=== PATIENT | female | born 1995 | race Caucasian/White ===

== ENCOUNTER → 2019-12-03 11:08 | Outpatient (BNVA) | payer OTHER, SELFPAY | PROVIDERS: Family Provider Pediatrics Adolescent Medicine; Visit Provider Obstetrics & Gynecology | DX: O09.33 Supervision of pregnancy with insufficient antenatal care, third trimester (principal) | CPT/HCPCS: 80053; 80307; 84315; 85027; 86592; 86762; 86803; 86850; 86900; 87340; 87806 ==

== ENCOUNTER → 2019-12-04 14:04 | Outpatient (BNVA) | payer OTHER, SELFPAY | PROVIDERS: Family Provider Pediatrics Adolescent Medicine; Visit Provider Obstetrics & Gynecology | DX: Z36.89 Encounter for other specified antenatal screening (principal) | CPT/HCPCS: 76805 ==

== ENCOUNTER → 2019-12-11 11:03 | Outpatient (BNVA) | payer OTHER, SELFPAY | PROVIDERS: Family Provider Pediatrics Adolescent Medicine; Visit Provider Obstetrics & Gynecology | DX: O09.33 Supervision of pregnancy with insufficient antenatal care, third trimester (principal); Z3A.00 Weeks of gestation of pregnancy not specified | CPT/HCPCS: 82950; 84315; 87491; 87591; 88175 ==

== ENCOUNTER → 2020-01-08 13:21 | Outpatient (BNVA) | payer OTHER, SELFPAY | PROVIDERS: Family Provider Pediatrics Adolescent Medicine; Visit Provider Obstetrics & Gynecology | DX: O09.33 Supervision of pregnancy with insufficient antenatal care, third trimester (principal) | CPT/HCPCS: 84315; 87081 ==

== ENCOUNTER 2020-02-01 20:38 | Inpatient (IN) | payer OTHER, SELFPAY ==
[2020-02-01] VITALS (18 sets, daily range): BP systolic 0–118; BP diastolic 0–75; PULSE 94–110; TEMP 36.8; BMI 25.9
[2020-02-01] MEDS: lactated ringers 1,000 ML 125 ML IV (21:00)
[2020-02-01 21:14] LABS: Basophils % 0.3 %; Eosinophils % 0.4 %; Hematocrit 35.5 % (37.0-47.0); Hemoglobin 10.9 g/dL (11.5-15.3); Lymphocytes # 1.9 10^3/uL (0.8-4.8); Lymphocytes % 17.7 %; Mean Corpuscular HGB Conc 30.7 g/dL (30.0-36.0); Mean Corpuscular Volume 87.9 fL (81-99); Mean Platelet Volume 10.7 fL (7.4-10.4); Monocytes # 0.8 10^3/uL (0.2-0.9); Monocytes % 7.8 %; Neutrophils # 7.84 10^3/uL (1.8-7.7); Neutrophils % 73.1 %; Nucleated Red Blood Cells % 0 %; Platelet Count 270 10^3/cmm (130-400); Red Blood Count 4.04 10^6/uL (4.1-5.3); Red Cell Distribution Width 14.7 % (12.1-15.1); White Blood Count 10.7 10^3/uL (4.0-10.0)
[2020-02-01] MEDS: oxytocin 30 UNIT/500 ML BAG 600 UNIT IV (22:54)
--- NOTE | 2020-02-01 23:37 | PM.DELIVERY ---
Delivery Note: Date of delivery: February 01, 2020 Pre-delivery diagnoses: Term Post-delivery diagnoses: Term delivered Procedure: Spontaneous vaginal delivery Op report anesthesia: None Estimated blood loss (mL): 300 Findings: Baby boy, Apgars 8/9 Delivery: The patient was noted to be complete and pushing, so was placed in the dorsal lithotomy position, prepped and draped in the usual sterile fashion for a vaginal delivery. Pt. Noted to have epidural anesthesia. At [] the patient delivered a Viable Male weighing [] g with scores of 8 and 9 at one and five minutes, respectively. The vertex was delivered spontaneously over Intact perineum. The patient was asked to push and the head delivered spontaneously in the BOOM position, over an intact perineum. A nuchal cord was checked and None noted. The anterior shoulder delivered easily and the posterior shoulder followed. The remainder of the infant was easily delivered and the oropharynx and nasopharynx was bulb suctioned. The infant was noted to have spontaneous cry and spontaneous movement of all four extremities. The cord was clamped x 2 and cut and noted to have 2 arteries and one vein. The was passed to the Mother's abdomen where Nursing personnel were in attendance. The placenta delivered intact Spontaneously and the uterus Was explored. 20 units of Pitocin was placed in the IV bag to firm the uterus. Examination of the cervix and vaginal vault did not reveal any lacerations. A vaginal pack was then placed. Examination of the perineum showed No lacerations. The vaginal pack was then removed. The patient tolerated this procedure well, and recovered in L&D with her infant In the [facility] [place]. All sponge and needle counts were correct. A&P Assessment and plan (1) Term delivered: Status: Acute (2) Supervision of with insufficient care in third trimester: Status: Acute Coding Level of Care Code Acute Assembler Surgical Garment for Chg Fwd Diagnoses Term delivered O80 Supervision of with insufficient care in third trimester O09.33
[2020-02-02] VITALS (20 sets, daily range): BP systolic 102–119; BP diastolic 53–72; PULSE 72–105; RESP 15–18; TEMP 36.6–37.2; O2SAT 97–99
--- NOTE | 2020-02-02 03:40 | PC.NURSE ---
With IV start
[2020-02-02] MEDS: docusate sodium 100 mg Capsule PO ×2 (08:45→18:19)
[2020-02-02] MEDS: prenatal vitamin Capsule 1 CAP PO (08:45)
[2020-02-02] MEDS: benzocaine-menthol 78 gm Canister 1 SPRAY TOPICAL (08:45)
[2020-02-02 12:47] LABS: Hematocrit 33.4 % (37.0-47.0); Hemoglobin 10.3 g/dL (11.5-15.3); Mean Corpuscular HGB Conc 30.8 g/dL (30.0-36.0); Mean Corpuscular Volume 87.7 fL (81-99); Mean Platelet Volume 10.7 fL (7.4-10.4); Platelet Count 247 10^3/cmm (130-400); Red Blood Count 3.81 10^6/uL (4.1-5.3); Red Cell Distribution Width 14.6 % (12.1-15.1); White Blood Count 12.7 10^3/uL (4.0-10.0)
[2020-02-03 05:15] VITALS: BP 94/60; RESP 16; O2SAT 69
[2020-02-03] MEDS: docusate sodium 100 mg Capsule PO (10:31)
[2020-02-03] MEDS: prenatal vitamin Capsule 1 CAP PO (10:31)
--- NOTE | 2020-02-03 13:13 | PM.OBGYDC ---
Discharge Providers [facility] Date of Admission: 02/01/20 20:38 Date of Discharge: 03/04/20 Attending Provider at Admission: Lionel Dang MD Attending Provider at Discharge: Lionel Dang MD Diagnoses at Discharge Discharge Diagnosis (1) Term delivered: Status: Acute (2) Supervision of with insufficient care in third trimester: Status: Resolved Reason for Visit Reason for Visit: labor Hospital Course Hospital Course: 3, Para 2-0-0-2 who has a LMP of 05/01/2020 and an EDC of 02/05/2020 based on LMP, into labor and delivery complaining of contraction she was found to be or early active labor with cervical exam /-2/vertex/IM. She progressed to have a spontaneous vaginal delivery of with a weght of 3685 g. recovery was uneventful. Information Peripartum Data: Infant Delivery Method: Vaginal Physical Exam Narrative: EXAM NARRATIVE: GA; alert and oriented x 3 HEENT: normal Breasts: engorged Nipples - skin intact Lungs; clear to auscultation Heart: regular rhythm, no murmurs. Abd: Appropriately tender. BS+. Uterine fundus below umbilicus. No Fundal Tenderness. Perineum: normal lochia. Extremities: no edema, no cyanosis, no tenderness. Discharge Data Vitals: Last Vital Signs Temp 97.9 F 02/02/20 19:00 Pulse 103 H 02/02/20 22:00 Resp 16 02/03/20 05:15 BP 94/60 02/03/20 05:15 Pulse Ox 69 L 02/03/20 05:15 Discharge Plan Discharge Patient Disposition: Home Condition: Stable Prescriptions: New ibuprofen 800 mg tablet 800 mg PO TID PRN (Reason: pain) Qty: 60 RF: 0 ferrous sulfate 325 mg (65 mg iron) tablet 325 mg PO BID Qty: 60 RF: 0 acetaminophen 325 mg capsule 325 mg PO Q4H PRN (Reason: fever or pain) Qty: 60 RF: 0 Continued DHA 200 mg capsule PO DAILY RF: 0 Discharge Orders: Discharge Order (Routine); Ordered 02/03/20 Ordered By: Lionel Dang Referrals: Lionel Dang MD [Physician] - 03/16/20 10:45 am (Your 6 week follow up appointment has been scheduled for 03/16/20 at 10:[address] Dang.) Discharge Diet: Regular Discharge Activity: Increase activity as tolerated Patient Instructions: Iron Supplements (By mouth), Acetaminophen (By mouth), Ibuprofen (By mouth), Vitamins (By mouth), OB Discharge Report, OB Food/Drug Interaction Guide, OB [facility] Parent Packet, OB Vaginal Deliveries Activity Restrictions/Additional Instructions: Pelvic rest for 6 weeks. Return to ER if any fever, increase bleeding or pain. Discharge Date/Time: 02/03/20 13:50 Discharge Attestations [facility] Time Spent in Discharge Care*: greater than 30 min Coding Level of Care Code Acute Maintenance Repairer for Chg Fwd Diagnoses Term delivered O80 Supervision of with insufficient care in third trimester O09.33
[2020-02-03 13:40] VITALS: BP 100/66; PULSE 80; RESP 18; TEMP 36.8
[2020-02-03 15:03] VITALS: BP 100/66; PULSE 80; RESP 18; TEMP 36.8
--- NOTE | 2020-03-09 06:32 | PM.PN ---
Subjective Subjective: Interval history: 24-year-old female status post spontaneous vaginal delivery. No complaints Vitals/I&O/Wt Last Vital Signs Temp 98.2 F 02/03/20 15:03 Pulse 80 02/03/20 15:03 Resp 18 02/03/20 15:03 BP 100/66 02/03/20 15:03 Pulse Ox 69 L 02/03/20 05:15 Physical Exam Narrative: EXAM NARRATIVE: GA; alert and oriented x 3 HEENT: normal Breasts: engorged Nipples - skin intact Lungs; clear to auscultation Heart: regular rhythm, no murmurs. Abd: Appropriately tender. BS+. Uterine fundus below umbilicus. No Fundal Tenderness. Perineum: normal lochia. Extremities: no edema, no cyanosis, no tenderness. Data : 02/02/20 12:10 A&P Assessment and plan (1) Term delivered: Patient is status post spontaneous vaginal delivery day 1. Ambulating without difficulty. Tolerating diet well. Afebrile hemodynamically stable. Will discharge after 24 hours . Status: Acute Attestations Medical Necessity Statement*: In my professional opinion per admitting diagnosis Coding Level of Care Code Acute Conveyor System Dispatcher for Chg Fwd Diagnoses Term delivered O80
== END 2020-02-03 13:50 | disposition home or self-care (01) | DRG 807 ==
LOC: OPOB 20:41 → OBGYN 20:41
PROVIDERS: Admitting Provider Obstetrics & Gynecology; Visit Provider Obstetrics & Gynecology
DX: O80 Encounter for full-term uncomplicated delivery (principal); Z37.0 Single live birth; Z3A.39 39 weeks gestation of pregnancy
CPT/HCPCS: 12345; 36415; 59025; 59409; 85025; 85027; 98960; 99211